=== PATIENT | male | born 1990 | race Caucasian/White ===

== ENCOUNTER 2019-10-20 11:39 | Inpatient (IN) | payer MEDICARE, MEDICAID ==
[~2019-10-20] VITALS: Ht 170.2 cm; Wt 93.7 kg
[2019-10-20] MEDS ORDERED: LORazepam 2 MG TABLET PO ONE (12:00)
[2019-10-20] MEDS ORDERED: HALOPERIDOL 5 MG TABLET PO ONE (12:00)
[2019-10-20] MEDS: GABAPENTIN 300 MG CAPSULE PO SCH (16:44)
[2019-10-20] MEDS: LORazepam 2 MG TABLET PO PRN (17:28)
[2019-10-20] MEDS: OLANZapine 10 MG TABLET PO SCH (17:29)
[2019-10-20 17:49] VITALS: BP 147/91
[2019-10-21] MEDS ORDERED: BENZOCAINE/MENTHOL LOZENGE MM PRN (07:00)
[2019-10-21] MEDS ORDERED: CloNIDine HCL 0.1 MG TABLET PO PRN (07:00)
[2019-10-21] MEDS ORDERED: DOCUSATE SODIUM 100 MG CAPSULE PO PRN (07:00)
[2019-10-21] MEDS ORDERED: MAGNESIUM HYDROXIDE SUSPENSION 30 ML UDCUP PO PRN (07:00)
[2019-10-21] MEDS ORDERED: ACETAMINOPHEN 325 MG TABLET PO PRN (07:00)
[2019-10-21] MEDS ORDERED: ONDANSETRON HCL 4 MG TABLET PO PRN (07:00)
[2019-10-21] MEDS ORDERED: PETROLATUM,WHITE 28 GM JELLY TP PRN (07:00)
[2019-10-21] MEDS ORDERED: IBUPROFEN 600 MG TABLET PO PRN (07:00)
[2019-10-21] MEDS ORDERED: MAG HYDROX/AL HYDROX/SIMETH ES 30 ML SUSPENSION UDCUP PO PRN (07:00)
[2019-10-21] MEDS ORDERED: ALBUTEROL SULFATE HFA 90 MCG/PUFF 8 GM INHALER IH PRN (07:00)
[2019-10-21] MEDS ORDERED: OMEPRAZOLE 20 MG CAPSULE PO PRN (07:00)
[2019-10-21] MEDS ORDERED: BACITRACIN 28.4 GM OINTMENT TP PRN (07:00)
[2019-10-21] MEDS: OLANZapine 10 MG TABLET PO SCH ×2 (08:48→17:31)
[2019-10-21] MEDS: GABAPENTIN 300 MG CAPSULE PO SCH ×3 (08:48→17:31)
[2019-10-21 09:13] VITALS: BP 147/92
[2019-10-21] MEDS: LORazepam 2 MG TABLET PO PRN (10:06)
[2019-10-21] MEDS: HALOPERIDOL 5 MG TABLET PO PRN (10:06)
[2019-10-21] MEDS ORDERED: OLANZapine 10 MG TABLET PO SCH (17:00)
[2019-10-21 17:02] VITALS: BP 142/88
[2019-10-22] MEDS: ZOLPIDEM TARTRATE 10 MG TABLET PO PRN (02:37)
[2019-10-22] MEDS: LORazepam 2 MG TABLET PO PRN ×4 (02:37→15:35)
[2019-10-22] MEDS: GABAPENTIN 300 MG CAPSULE PO SCH ×3 (07:31→16:36)
[2019-10-22] MEDS: OLANZapine 10 MG TABLET PO SCH ×2 (07:31→16:36)
[2019-10-22] MEDS: HALOPERIDOL 5 MG TABLET PO PRN ×3 (07:32→15:36)
[2019-10-23] MEDS: ZOLPIDEM TARTRATE 10 MG TABLET PO PRN (02:05)
[2019-10-23] MEDS: LORazepam 2 MG TABLET PO PRN ×4 (05:27→16:00)
[2019-10-23] MEDS: OLANZapine 10 MG TABLET PO SCH ×2 (07:17→16:00)
[2019-10-23] MEDS: HALOPERIDOL 5 MG TABLET PO PRN ×3 (07:18→16:00)
[2019-10-23] MEDS: GABAPENTIN 300 MG CAPSULE PO SCH ×2 (07:18→16:00)
[2019-10-23 11:18] VITALS: BP 136/71
[2019-10-23 16:00] VITALS: BP 141/80
[2019-10-24] MEDS: LORazepam 2 MG TABLET PO PRN ×4 (04:34→17:04)
[2019-10-24] MEDS: HALOPERIDOL 5 MG TABLET PO PRN ×4 (04:34→17:04)
[2019-10-24 08:00] VITALS: BP 134/78
[2019-10-24] MEDS: OLANZapine 10 MG TABLET PO SCH ×2 (09:04→15:59)
[2019-10-24] MEDS: GABAPENTIN 300 MG CAPSULE PO SCH ×2 (09:05→15:59)
[2019-10-24 16:39] VITALS: BP 136/82
[2019-10-25] MEDS: LORazepam 2 MG TABLET PO PRN ×3 (04:01→14:13)
[2019-10-25 06:22] LABS: GLUCOMETER DEV NAME(LOC) 3E.C; GLUCOSE,POINT OF CARE 130 MG/DL (70-110)
[2019-10-25] MEDS: HALOPERIDOL 5 MG TABLET PO PRN ×2 (08:06→14:13)
[2019-10-25] MEDS: GABAPENTIN 300 MG CAPSULE PO SCH ×2 (08:07→17:54)
[2019-10-25] MEDS: OLANZapine 10 MG TABLET PO SCH (08:07)
[2019-10-25 10:31] VITALS: BP 136/81
[2019-10-25 14:10] VITALS: BP 143/71
[2019-10-25] MEDS ORDERED: OLANZapine 7.5 MG TABLET PO ONE (17:00)
[2019-10-26] MEDS: LORazepam 2 MG TABLET PO PRN ×3 (03:29→13:38)
[2019-10-26 03:34] VITALS: BP 135/60
[2019-10-26] MEDS: HALOPERIDOL 5 MG TABLET PO PRN ×2 (06:46→13:38)
[2019-10-26] MEDS: GABAPENTIN 300 MG CAPSULE PO SCH ×2 (07:21→16:14)
[2019-10-26] MEDS: OLANZapine 7.5 MG TABLET PO SCH ×2 (07:21→16:17)
[2019-10-26 08:00] VITALS: BP 137/96
[2019-10-26 09:53] LABS: HEMATOCRIT 44.3 % (41-53); MEAN CORPUSCULAR HEMOGLOBIN 29.8 pg (26.0-34.0); MEAN CORPUSCULAR HGB CONC 33.9 G/dL (31.0-37.0); MEAN CORPUSCULAR VOLUME 88 fL (80-100); PLATELET COUNT (AUTO) 291 K/uL (150-450); RED BLOOD CELL COUNT(AUTO) 5.05 MIL/uL (4.50-5.90); RED CELL DISTRIBUTION WIDTH 12.6 % (11.5-14.5)
[2019-10-26 10:24] LABS: ANION GAP 7 mmol/L (8-16); CALCIUM, TOTAL 8.9 mg/dL (8.8-10.5); CARBON DIOXIDE 26 mmol/L (22-29); CHLORIDE 99 mmol/L (98-107); CHOL/HDL RATIO 6.9 (4.2-7.3); CHOLESTEROL 234 mg/dL (131-200); CREATININE 0.94 mg/dL (0.60-1.30); GLOMERULAR FILTR. RATE CALC > 60 mL/min (>60); GLUCOSE,RANDOM 132 mg/dL (70-110); HDL CHOLESTEROL 34 mg/dL (40-60); LDL CHOL (CALC.) 125 mg/dL (0-130); PHOSPHORUS 4.3 mg/dL (2.5-4.9); POTASSIUM 4.4 mmol/L (3.5-5.1); SODIUM SERUM 132 mmol/L (136-145); THYROID STIMULATING HORMONE 0.69 uIU/mL (0.36-3.74); TRIGLYCERIDES 373 mg/dL (15-150); UREA NITROGEN, BLOOD 18 mg/dL (7-18)
[2019-10-26 10:41] LABS: BAND NEUTROPHILS % (MANUAL) 3 % (0-5); EOSINOPHILS % (MANUAL) 2 % (1-6); LYMPHOCYTES % (MANUAL) 22 % (22-44); MONOCYTES % (MANUAL) 2 % (2-9); SEGMENTED NEUTROPHILS % 71 % (40-70)
[2019-10-27] MEDS: LORazepam 2 MG TABLET PO PRN ×3 (02:23→13:32)
[2019-10-27] MEDS: GABAPENTIN 300 MG CAPSULE PO SCH (07:15)
[2019-10-27] MEDS: OLANZapine 7.5 MG TABLET PO SCH (07:15)
[2019-10-27] MEDS: HALOPERIDOL 5 MG TABLET PO PRN ×2 (07:16→13:32)
[2019-10-27 08:50] VITALS: BP 158/92
[2019-10-27] MEDS: LOPERAMIDE HCL 2 MG CAPSULE PO PRN ×2 (11:13→13:32)
[2019-10-27] MEDS ORDERED: GABA-1181 PO (11:15)
[2019-10-27] MEDS ORDERED: OLAN7.5T2 PO (11:15)
== END 2019-10-27 15:10 | disposition home or self-care (01) | DRG 885 ==
LOC: EMS 11:46 → 3EC 16:40
PROVIDERS: ADMIT Psychiatry & Neurology Psychiatry; ATTEND Psychiatry & Neurology Psychiatry
DX: F31.9 Bipolar disorder, unspecified (principal); F17.200 Nicotine dependence, unspecified, uncomplicated; F15.90 Other stimulant use, unspecified, uncomplicated; F41.9 Anxiety disorder, unspecified; G47.00 Insomnia, unspecified; Z59.0 Homelessness; F20.0 Paranoid schizophrenia
CPT/HCPCS: 83735; 84100; 84443; 85007

== ENCOUNTER 2020-02-10 15:19 | Inpatient (IN) | payer MEDICARE, MEDICAID ==
[~2020-02-10] VITALS: Ht 170.2 cm; Wt 94.8 kg
[~2020-02-10 15:19] MED LIST: GABA-1181 PO; OLAN7.5T2 PO
[2020-02-10] MEDS ORDERED: LORazepam 2 MG/ML VIAL IM ONE (18:00)
[2020-02-10] MEDS ORDERED: DiphenhydrAMINE HCL 50 MG/ML VIAL IM ONE (18:00)
[2020-02-10] MEDS ORDERED: HALOPERIDOL LACTATE 5 MG/ML VIAL IM ONE (18:00)
[2020-02-10] MEDS ORDERED: DiphenhydrAMINE HCL 25 MG CAPSULE PO ONE (18:45)
[2020-02-10] MEDS ORDERED: LORazepam 2 MG TABLET PO ONE (18:45)
[2020-02-10] MEDS ORDERED: HALOPERIDOL 5 MG TABLET PO ONE (18:45)
[2020-02-10 19:55] LABS: BASOPHILS % (AUTO) 0.3 % (0.0-2.0); EOSINOPHILS % (AUTO) 0.2 % (1.0-6.0); HEMATOCRIT 45.9 % (41-53); HEMOGLOBIN 15.4 g/dL (13.5-17.5); LYMPHOCYTES # (AUTO) 1.3 K/uL (1.0-4.8); LYMPHOCYTES % (AUTO) 10.3 % (22.0-44.0); MEAN CORPUSCULAR HEMOGLOBIN 29.4 pg (26.0-34.0); MEAN CORPUSCULAR HGB CONC 33.6 G/dL (31.0-37.0); MEAN CORPUSCULAR VOLUME 88 fL (80-100); MONOCYTES # (AUTO) 0.6 K/uL (0.1-1.0); MONOCYTES % (AUTO) 4.7 % (2.0-9.0); NEUTROPHILS # (AUTO) 10.8 K/uL (1.8-7.7); NEUTROPHILS % (AUTO) 84.5 % (40.0-70.0); PLATELET COUNT (AUTO) 333 K/uL (150-450); RED BLOOD CELL COUNT(AUTO) 5.23 MIL/uL (4.50-5.90); RED CELL DISTRIBUTION WIDTH 13.1 % (11.5-14.5)
[2020-02-10 20:07] LABS: ANION GAP 11 mmol/L (8-16); CALCIUM, TOTAL 9.5 mg/dL (8.8-10.5); CARBON DIOXIDE 24 mmol/L (22-29); CHLORIDE 109 mmol/L (98-107); CREATININE 1.35 mg/dL (0.60-1.30); GLOMERULAR FILTR. RATE CALC > 60 mL/min (>60); GLUCOSE,RANDOM 101 mg/dL (70-110); SODIUM SERUM 144 mmol/L (136-145); UREA NITROGEN, BLOOD 18 mg/dL (7-18)
[2020-02-10 20:12] LABS: ALANINE AMINOTRANSFERASE 36 U/L (12-78); ALBUMIN 4.3 g/dL (3.4-5.0); ALKALINE PHOSPHATASE 108 U/L (46-116); ASPARTATE AMINOTRANSFERASE 30 U/L (15-37); BILIRUBIN,TOTAL 0.6 mg/dL (0.1-1.0); TOTAL PROTEIN, SERUM 8.6 g/dL (6.4-8.2)
[2020-02-10] MEDS ORDERED: ZOLPIDEM TARTRATE 10 MG TABLET PO PRN (20:15)
[2020-02-11 02:20] VITALS: BP 132/87
[2020-02-11] MEDS: LORazepam 2 MG TABLET PO PRN ×2 (07:02→11:20)
[2020-02-11] MEDS ORDERED: GuaiFENesin/D-METHORPHAN [SUGAR-FREE] 200-20MG/10 ML SYRUP UDCUP PO PRN (08:00)
[2020-02-11] MEDS ORDERED: DOCUSATE SODIUM 100 MG CAPSULE PO PRN (08:00)
[2020-02-11] MEDS ORDERED: MAGNESIUM HYDROXIDE SUSPENSION 30 ML UDCUP PO PRN (08:00)
[2020-02-11] MEDS ORDERED: MAG HYDROX/AL HYDROX/SIMETH ES 30 ML SUSPENSION UDCUP PO PRN (08:00)
[2020-02-11] MEDS ORDERED: NICOTINE 14 MG/24 HOUR PATCH TD PRN (08:00)
[2020-02-11] MEDS ORDERED: CloNIDine HCL 0.1 MG TABLET PO PRN (08:00)
[2020-02-11] MEDS ORDERED: ACETAMINOPHEN 325 MG TABLET PO PRN (08:00)
[2020-02-11] MEDS ORDERED: PETROLATUM,WHITE 28 GM JELLY TP PRN (08:00)
[2020-02-11] MEDS ORDERED: IBUPROFEN 400 MG TABLET PO PRN (08:00)
[2020-02-11] MEDS ORDERED: LOPERAMIDE HCL 2 MG CAPSULE PO PRN (08:00)
[2020-02-11] MEDS ORDERED: ALBUTEROL SULFATE HFA 90 MCG/PUFF 8 GM INHALER IH PRN (08:00)
[2020-02-11] MEDS ORDERED: ONDANSETRON HCL 4 MG TABLET PO PRN (08:00)
[2020-02-11] MEDS: HALOPERIDOL 5 MG TABLET PO PRN (11:21)
[2020-02-11] MEDS: GABAPENTIN 300 MG CAPSULE PO SCH ×2 (12:44→18:05)
[2020-02-11] MEDS: OLANZapine 7.5 MG TABLET PO SCH ×2 (12:44→18:05)
[2020-02-11 16:35] VITALS: BP 111/74
[2020-02-12] MEDS: LORazepam 2 MG TABLET PO PRN ×2 (03:53→10:45)
[2020-02-12 08:04] VITALS: BP 139/68
[2020-02-12] MEDS: GABAPENTIN 300 MG CAPSULE PO SCH ×2 (08:43→16:15)
[2020-02-12] MEDS: OLANZapine 7.5 MG TABLET PO SCH ×2 (08:44→16:16)
[2020-02-12 16:15] VITALS: BP 109/77
[2020-02-13] MEDS: LORazepam 2 MG TABLET PO PRN ×3 (03:23→16:11)
[2020-02-13 08:41] VITALS: BP 108/65
[2020-02-13] MEDS: HALOPERIDOL 5 MG TABLET PO PRN (09:00)
[2020-02-13] MEDS: GABAPENTIN 300 MG CAPSULE PO SCH ×2 (10:43→16:11)
[2020-02-13] MEDS: OLANZapine 7.5 MG TABLET PO SCH ×2 (10:44→16:11)
[2020-02-13 16:13] VITALS: BP 141/77
[2020-02-14] MEDS: LORazepam 2 MG TABLET PO PRN ×3 (05:50→16:07)
[2020-02-14] MEDS: HALOPERIDOL 5 MG TABLET PO PRN ×2 (05:50→12:01)
[2020-02-14 05:54] VITALS: BP 119/81
[2020-02-14 07:23] LABS: CHOL/HDL RATIO 5.6 (4.2-7.3)
[2020-02-14] MEDS: GABAPENTIN 300 MG CAPSULE PO SCH ×2 (08:21→16:34)
[2020-02-14] MEDS: OLANZapine 7.5 MG TABLET PO SCH ×2 (08:21→16:35)
[2020-02-14 08:34] VITALS: BP 126/78
[2020-02-14 16:14] VITALS: BP 130/87
[2020-02-15] MEDS: LORazepam 2 MG TABLET PO PRN ×3 (03:48→16:31)
[2020-02-15] MEDS: HALOPERIDOL 5 MG TABLET PO PRN ×2 (05:15→11:41)
[2020-02-15 08:00] LABS: BASOPHILS % (AUTO) 0.5 % (0.0-2.0); EOSINOPHILS % (AUTO) 4.5 % (1.0-6.0); HEMATOCRIT 45.8 % (41-53); HEMOGLOBIN 15.4 g/dL (13.5-17.5); LYMPHOCYTES # (AUTO) 1.7 K/uL (1.0-4.8); LYMPHOCYTES % (AUTO) 22.7 % (22.0-44.0); MEAN CORPUSCULAR HEMOGLOBIN 29.8 pg (26.0-34.0); MEAN CORPUSCULAR HGB CONC 33.7 G/dL (31.0-37.0); MEAN CORPUSCULAR VOLUME 88 fL (80-100); MONOCYTES # (AUTO) 0.6 K/uL (0.1-1.0); MONOCYTES % (AUTO) 7.8 % (2.0-9.0); NEUTROPHILS # (AUTO) 4.9 K/uL (1.8-7.7); NEUTROPHILS % (AUTO) 64.5 % (40.0-70.0); PLATELET COUNT (AUTO) 273 K/uL (150-450); RED BLOOD CELL COUNT(AUTO) 5.18 MIL/uL (4.50-5.90); RED CELL DISTRIBUTION WIDTH 12.8 % (11.5-14.5)
[2020-02-15 08:11] LABS: ANION GAP 6 mmol/L (8-16); CALCIUM, TOTAL 9.1 mg/dL (8.8-10.5); CARBON DIOXIDE 27 mmol/L (22-29); CHLORIDE 103 mmol/L (98-107); CREATININE 0.94 mg/dL (0.60-1.30); GLOMERULAR FILTR. RATE CALC > 60 mL/min (>60); GLUCOSE,RANDOM 107 mg/dL (70-110); POTASSIUM 4.7 mmol/L (3.5-5.1); SODIUM SERUM 136 mmol/L (136-145); UREA NITROGEN, BLOOD 12 mg/dL (7-18)
[2020-02-15] MEDS: GABAPENTIN 300 MG CAPSULE PO SCH ×2 (08:43→16:41)
[2020-02-15] MEDS: OLANZapine 7.5 MG TABLET PO SCH ×2 (08:43→16:42)
[2020-02-15] MEDS ORDERED: LITHIUM CARBONATE 300 MG CAPSULE PO ONE (12:00)
[2020-02-15 16:12] VITALS: BP 110/63
[2020-02-15] MEDS: LITHIUM CARBONATE 300 MG CAPSULE PO SCH (16:41)
[2020-02-16] MEDS: HALOPERIDOL 5 MG TABLET PO PRN ×2 (05:17→14:34)
[2020-02-16] MEDS: LORazepam 2 MG TABLET PO PRN ×2 (05:17→14:34)
[2020-02-16] MEDS: GABAPENTIN 300 MG CAPSULE PO SCH ×2 (08:06→16:41)
[2020-02-16] MEDS: OLANZapine 7.5 MG TABLET PO SCH ×2 (08:06→16:42)
[2020-02-16] MEDS: LITHIUM CARBONATE 300 MG CAPSULE PO SCH ×2 (08:06→16:41)
[2020-02-16 09:00] VITALS: BP 127/85
[2020-02-17] MEDS: HALOPERIDOL 5 MG TABLET PO PRN (05:58)
[2020-02-17] MEDS: LORazepam 2 MG TABLET PO PRN ×2 (05:58→15:43)
[2020-02-17 06:40] VITALS: BP 130/79
[2020-02-17] MEDS: GABAPENTIN 300 MG CAPSULE PO SCH ×2 (08:19→16:35)
[2020-02-17] MEDS: LITHIUM CARBONATE 300 MG CAPSULE PO SCH ×2 (08:20→16:35)
[2020-02-17] MEDS: OLANZapine 7.5 MG TABLET PO SCH ×2 (08:20→16:35)
[2020-02-17 09:31] VITALS: BP 114/80
[2020-02-17 16:29] VITALS: BP 105/68
[2020-02-18 04:50] VITALS: BP 126/69
[2020-02-18] MEDS: LORazepam 2 MG TABLET PO PRN ×3 (05:01→17:51)
[2020-02-18] MEDS: HALOPERIDOL 5 MG TABLET PO PRN (05:01)
[2020-02-18] MEDS: GABAPENTIN 300 MG CAPSULE PO SCH ×2 (08:45→17:51)
[2020-02-18] MEDS: LITHIUM CARBONATE 300 MG CAPSULE PO SCH ×2 (08:45→17:51)
[2020-02-18] MEDS: OLANZapine 7.5 MG TABLET PO SCH ×2 (08:45→17:51)
[2020-02-18 09:06] VITALS: BP 131/71
[2020-02-18 16:16] VITALS: BP 140/60
[2020-02-19] MEDS: LORazepam 2 MG TABLET PO PRN ×3 (00:30→11:09)
[2020-02-19 00:49] VITALS: BP 143/72
[2020-02-19] MEDS: OLANZapine 7.5 MG TABLET PO SCH ×2 (08:26→16:32)
[2020-02-19] MEDS: LITHIUM CARBONATE 300 MG CAPSULE PO SCH (08:26)
[2020-02-19] MEDS: GABAPENTIN 300 MG CAPSULE PO SCH ×2 (08:26→16:32)
[2020-02-19 08:28] VITALS: BP 109/64
[2020-02-19 16:17] VITALS: BP 113/71
[2020-02-19] MEDS: LITHIUM CARBONATE 600 MG CAPSULE PO SCH (16:34)
[2020-02-20] MEDS: LORazepam 2 MG TABLET PO PRN ×3 (01:54→12:07)
[2020-02-20 08:26] VITALS: BP 127/89
[2020-02-20] MEDS: GABAPENTIN 300 MG CAPSULE PO SCH ×2 (08:35→16:38)
[2020-02-20] MEDS: OLANZapine 7.5 MG TABLET PO SCH ×2 (08:35→16:38)
[2020-02-20] MEDS: LITHIUM CARBONATE 600 MG CAPSULE PO SCH ×2 (08:35→16:38)
[2020-02-20 17:28] VITALS: BP 117/71
[2020-02-21 05:24] VITALS: BP 106/60
[2020-02-21 08:44] VITALS: BP 108/69
[2020-02-21] MEDS: OMEGA-3/DHA/EPA/FISH OIL 1,000 MG CAPSULE PO SCH (08:51)
[2020-02-21] MEDS: GABAPENTIN 300 MG CAPSULE PO SCH ×2 (08:51→16:07)
[2020-02-21] MEDS: LITHIUM CARBONATE 600 MG CAPSULE PO SCH ×2 (08:52→16:06)
[2020-02-21] MEDS: OLANZapine 7.5 MG TABLET PO SCH ×2 (08:52→16:07)
[2020-02-21] MEDS: HALOPERIDOL 5 MG TABLET PO PRN (15:29)
[2020-02-21] MEDS: ZIPRASIDONE HCL 20 MG CAPSULE PO SCH (16:07)
[2020-02-21 16:14] VITALS: BP 130/84
[2020-02-22 04:48] VITALS: BP 157/72
[2020-02-22] MEDS: HALOPERIDOL 5 MG TABLET PO PRN (05:49)
[2020-02-22] MEDS: ZIPRASIDONE HCL 20 MG CAPSULE PO SCH ×2 (07:00→16:35)
[2020-02-22] MEDS: OMEGA-3/DHA/EPA/FISH OIL 1,000 MG CAPSULE PO SCH (08:22)
[2020-02-22] MEDS: GABAPENTIN 300 MG CAPSULE PO SCH ×2 (08:22→16:35)
[2020-02-22] MEDS: LITHIUM CARBONATE 600 MG CAPSULE PO SCH (08:22)
[2020-02-22] MEDS: OLANZapine 7.5 MG TABLET PO SCH ×2 (08:22→16:35)
[2020-02-22 08:34] VITALS: BP 119/65
[2020-02-22] MEDS: LORazepam 2 MG TABLET PO PRN (14:31)
[2020-02-22] MEDS: LITHIUM CARBONATE 300 MG CAPSULE PO SCH (16:34)
[2020-02-22] MEDS: BENZTROPINE MESYLATE 2 MG TABLET PO SCH (16:35)
[2020-02-22 17:24] VITALS: BP 111/86
[2020-02-23] MEDS: LORazepam 2 MG TABLET PO PRN ×3 (03:49→17:23)
[2020-02-23] MEDS: ZIPRASIDONE HCL 20 MG CAPSULE PO SCH ×2 (06:31→16:57)
[2020-02-23] MEDS: LITHIUM CARBONATE 300 MG CAPSULE PO SCH ×2 (08:03→15:52)
[2020-02-23] MEDS: BENZTROPINE MESYLATE 2 MG TABLET PO SCH ×2 (08:04→15:52)
[2020-02-23] MEDS: OLANZapine 7.5 MG TABLET PO SCH ×2 (08:04→15:52)
[2020-02-23] MEDS: OMEGA-3/DHA/EPA/FISH OIL 1,000 MG CAPSULE PO SCH (08:04)
[2020-02-23] MEDS: GABAPENTIN 300 MG CAPSULE PO SCH ×2 (08:04→15:52)
[2020-02-23 09:01] VITALS: BP 135/70
[2020-02-24 01:10] VITALS: BP_SYST 109; BP_SYST 122; BP_DIAS 70; BP_DIAS 75
[2020-02-24] MEDS: LORazepam 2 MG TABLET PO PRN ×2 (04:23→10:54)
[2020-02-24] MEDS: ZIPRASIDONE HCL 20 MG CAPSULE PO SCH (06:36)
[2020-02-24] MEDS: GABAPENTIN 300 MG CAPSULE PO SCH ×2 (10:10→17:05)
[2020-02-24] MEDS: LITHIUM CARBONATE 300 MG CAPSULE PO SCH ×2 (10:10→17:05)
[2020-02-24] MEDS: OLANZapine 7.5 MG TABLET PO SCH ×2 (10:11→17:06)
[2020-02-24] MEDS: OMEGA-3/DHA/EPA/FISH OIL 1,000 MG CAPSULE PO SCH (10:11)
[2020-02-24] MEDS: BENZTROPINE MESYLATE 2 MG TABLET PO SCH ×2 (10:11→17:05)
[2020-02-24 16:52] VITALS: BP 108/64
[2020-02-24] MEDS: ZIPRASIDONE HCL 40 MG CAPSULE PO SCH (17:05)
[2020-02-25] MEDS: LORazepam 2 MG TABLET PO PRN ×2 (04:48→17:28)
[2020-02-25] MEDS: ZIPRASIDONE HCL 40 MG CAPSULE PO SCH ×2 (06:51→16:58)
[2020-02-25] MEDS: GABAPENTIN 300 MG CAPSULE PO SCH ×2 (08:31→16:58)
[2020-02-25] MEDS: BENZTROPINE MESYLATE 2 MG TABLET PO SCH ×2 (08:31→16:57)
[2020-02-25] MEDS: OMEGA-3/DHA/EPA/FISH OIL 1,000 MG CAPSULE PO SCH (08:31)
[2020-02-25] MEDS: LITHIUM CARBONATE 300 MG CAPSULE PO SCH ×2 (08:31→16:58)
[2020-02-25] MEDS: OLANZapine 7.5 MG TABLET PO SCH ×2 (08:31→16:58)
[2020-02-25 17:12] VITALS: BP 113/61
[2020-02-26] MEDS: LORazepam 2 MG TABLET PO PRN ×4 (03:25→20:37)
[2020-02-26 04:54] VITALS: BP 128/67
[2020-02-26] MEDS: ZIPRASIDONE HCL 40 MG CAPSULE PO SCH ×2 (06:40→16:44)
[2020-02-26] MEDS: OLANZapine 7.5 MG TABLET PO SCH ×2 (08:07→16:44)
[2020-02-26] MEDS: LITHIUM CARBONATE 300 MG CAPSULE PO SCH ×2 (08:07→16:44)
[2020-02-26] MEDS: BENZTROPINE MESYLATE 2 MG TABLET PO SCH ×2 (08:07→16:44)
[2020-02-26] MEDS: HALOPERIDOL 5 MG TABLET PO PRN (08:07)
[2020-02-26] MEDS: GABAPENTIN 300 MG CAPSULE PO SCH ×2 (08:07→16:44)
[2020-02-26] MEDS: OMEGA-3/DHA/EPA/FISH OIL 1,000 MG CAPSULE PO SCH (08:07)
[2020-02-26 08:55] VITALS: BP 118/82
[2020-02-27] MEDS: LORazepam 2 MG TABLET PO PRN ×3 (05:13→12:23)
[2020-02-27 06:03] VITALS: BP 152/60
[2020-02-27] MEDS: ZIPRASIDONE HCL 40 MG CAPSULE PO SCH ×2 (06:36→16:40)
[2020-02-27] MEDS: HALOPERIDOL 5 MG TABLET PO PRN (08:06)
[2020-02-27] MEDS: LITHIUM CARBONATE 300 MG CAPSULE PO SCH ×2 (08:06→16:11)
[2020-02-27] MEDS: BENZTROPINE MESYLATE 2 MG TABLET PO SCH ×2 (08:06→16:10)
[2020-02-27] MEDS: GABAPENTIN 300 MG CAPSULE PO SCH ×2 (08:06→16:11)
[2020-02-27] MEDS: OMEGA-3/DHA/EPA/FISH OIL 1,000 MG CAPSULE PO SCH (08:06)
[2020-02-27] MEDS: OLANZapine 7.5 MG TABLET PO SCH ×2 (08:07→16:11)
[2020-02-27 12:42] VITALS: BP 150/67
[2020-02-27 17:51] VITALS: BP 119/84
[2020-02-28] MEDS: LORazepam 2 MG TABLET PO PRN ×3 (03:51→15:50)
[2020-02-28 04:00] VITALS: BP 141/72
[2020-02-28] MEDS: ZIPRASIDONE HCL 40 MG CAPSULE PO SCH ×2 (07:02→16:52)
[2020-02-28] MEDS: HALOPERIDOL 5 MG TABLET PO PRN (08:03)
[2020-02-28] MEDS: GABAPENTIN 300 MG CAPSULE PO SCH ×2 (08:04→16:52)
[2020-02-28] MEDS: BENZTROPINE MESYLATE 2 MG TABLET PO SCH ×2 (08:04→16:52)
[2020-02-28] MEDS: LITHIUM CARBONATE 300 MG CAPSULE PO SCH ×2 (08:04→16:52)
[2020-02-28] MEDS: OLANZapine 7.5 MG TABLET PO SCH ×2 (08:04→16:52)
[2020-02-28] MEDS: OMEGA-3/DHA/EPA/FISH OIL 1,000 MG CAPSULE PO SCH (08:04)
[2020-02-28 17:19] VITALS: BP 146/79
[2020-02-29 05:34] VITALS: BP 121/78
[2020-02-29] MEDS: ZIPRASIDONE HCL 40 MG CAPSULE PO SCH ×2 (06:36→17:06)
[2020-02-29 08:12] VITALS: BP 135/82
[2020-02-29] MEDS: OMEGA-3/DHA/EPA/FISH OIL 1,000 MG CAPSULE PO SCH (08:15)
[2020-02-29] MEDS: OLANZapine 7.5 MG TABLET PO SCH ×2 (08:15→17:06)
[2020-02-29] MEDS: LITHIUM CARBONATE 300 MG CAPSULE PO SCH ×2 (08:15→17:06)
[2020-02-29] MEDS: GABAPENTIN 300 MG CAPSULE PO SCH ×2 (08:15→17:06)
[2020-02-29] MEDS: BENZTROPINE MESYLATE 2 MG TABLET PO SCH ×2 (08:16→17:06)
[2020-02-29] MEDS: LORazepam 2 MG TABLET PO PRN ×2 (08:48→15:45)
[2020-02-29 16:10] VITALS: BP 123/68
[2020-03-01 05:19] VITALS: BP 110/65
[2020-03-01] MEDS: LORazepam 2 MG TABLET PO PRN ×2 (05:21→14:02)
[2020-03-01] MEDS: ZIPRASIDONE HCL 60 MG CAPSULE PO SCH ×2 (06:37→17:11)
[2020-03-01] MEDS: OMEGA-3/DHA/EPA/FISH OIL 1,000 MG CAPSULE PO SCH (08:29)
[2020-03-01] MEDS: BENZTROPINE MESYLATE 2 MG TABLET PO SCH ×2 (08:29→17:10)
[2020-03-01 08:30] VITALS: BP 128/69
[2020-03-01] MEDS: LITHIUM CARBONATE 300 MG CAPSULE PO SCH ×2 (08:30→17:10)
[2020-03-01] MEDS: OLANZapine 7.5 MG TABLET PO SCH ×2 (08:30→17:11)
[2020-03-01] MEDS: GABAPENTIN 300 MG CAPSULE PO SCH ×2 (08:30→17:10)
[2020-03-01 16:19] VITALS: BP 132/78
[2020-03-02 04:51] VITALS: BP 125/75
[2020-03-02] MEDS: LORazepam 2 MG TABLET PO PRN (06:06)
[2020-03-02] MEDS: ZIPRASIDONE HCL 60 MG CAPSULE PO SCH (06:54)
[2020-03-02] MEDS: OLANZapine 7.5 MG TABLET PO SCH (08:05)
[2020-03-02] MEDS: LITHIUM CARBONATE 300 MG CAPSULE PO SCH (08:05)
[2020-03-02] MEDS: GABAPENTIN 300 MG CAPSULE PO SCH (08:05)
[2020-03-02] MEDS: BENZTROPINE MESYLATE 2 MG TABLET PO SCH (08:05)
[2020-03-02] MEDS: OMEGA-3/DHA/EPA/FISH OIL 1,000 MG CAPSULE PO SCH (08:05)
[2020-03-02 08:25] VITALS: BP 133/92
[2020-03-02] MEDS ORDERED: BENZ2TAB10 PO (13:33)
[2020-03-02] MEDS ORDERED: LITH300C3 PO (13:33)
[2020-03-02] MEDS ORDERED: ZIPR60CA2 PO (13:33)
[2020-03-02] MEDS ORDERED: OMEG-135 PO (13:41)
== END 2020-03-02 15:00 | disposition home or self-care (01) | DRG 885 ==
LOC: EMS 15:19 → B3A 20:03 → B2X 02-11 16:03
PROVIDERS: ADMIT Psychiatry & Neurology Psychiatry; ATTEND Psychiatry & Neurology Psychiatry
DX: F20.0 Paranoid schizophrenia (principal); N17.9 Acute kidney failure, unspecified; D72.829 Elevated white blood cell count, unspecified; R00.0 Tachycardia, unspecified; F17.210 Nicotine dependence, cigarettes, uncomplicated; Z59.0 Homelessness; Z78.1 Physical restraint status; Z20.828 Contact with and (suspected) exposure to other viral communicable diseases
CPT/HCPCS: 87426; 99291; G0480; J1200; J1630; J2060